=== PATIENT | male | born 2000 | race Caucasian/White ===

== ENCOUNTER 2023-03-20 18:46 | Emergency (ER) | payer OTHER, SELFPAY ==
[2023-03-20 19:04] VITALS: BP 137/74; PULSE 75; RESP 18; TEMP 36.5; O2SAT 96
--- NOTE | 2023-03-20 19:21 | ED.SOB ---
HPI - SOB/Dyspnea General Chief Complaint: Upper Respiratory Infection Stated Complaint: shortness of breath Time Seen by Provider: 03/20/23 19:12 Source: patient and RN notes reviewed Mode of arrival: ambulatory Limitations: no limitations History of Present Illness HPI Narrative: Patient presents today complaining of mild shortness of breath times 3-4 weeks with occasional cough. States cough has not been present for at least 1 week. Denies fever or any additional symptoms. He has tried Mucinex with mild relief. No history of asthma. He is a nonsmoker. Related Data Home Medications Medication Instructions Recorded Confirmed cetirizine 5 mg tablet 5 mg PO DAILY 03/20/23 03/20/23 omeprazole 20 mg capsule,delayed 20 mg DAILY 03/20/23 03/20/23 release Allergies Allergy/AdvReac Type Severity Reaction Status Date / Time No Known Allergies Allergy Verified 03/20/23 19:12 Review of Systems Review of Systems: CONSTITUTIONAL: Denies body aches, fever, chills, or sweats. EYES: Denies visual changes, redness, or discharge. ENT: Denies rhinorrhea, congestion, sore throat, or otalgia. CARDIOVASCULAR: Denies chest pain, palpitations, or edema. RESPIRATORY: + occasional cough, shortness of breath GASTROINTESTINAL: Denies abdominal pain, nausea, vomiting, or diarrhea. GENITOURINARY: Denies dysuria or hematuria. SKIN: Denies rash, itching, or wounds. MUSCULOSKELETAL: Denies back pain, joint pain, or myalgia. NEUROLOGIC: Denies headache, numbness, tingling, or weakness. PSYCH: Denies depression or anxiety. COUNTS INCLUDE 234 BEDS AT THE [facility] Past Medical History Medical History (Updated 03/20/23 @ 19:25 by Sudha Branch, [facility], ) GERD (gastroesophageal reflux disease) Comments At time of signature, I have reviewed and agree with nursing past medical, surgical, social and family history unless otherwise noted. Please see nursing chart for further information. There is no relevant family history pertinent to the presenting complaint Exam Narrative: GENERAL: Well-appearing, well-nourished, and in no acute distress. HEAD: Normocephalic, atraumatic. EYES: EOMI. No redness or drainage. Conjunctivae normal. ENT: Mucous membranes pink and moist. Nares clear. No rhinorrhea. TMs normal bilaterally. Throat normal. Uvula midline. NECK: Normal AROM. Supple. No lymphadenopathy. CHEST: No respiratory distress. Expiratory wheezing throughout. HEART: Regular rate and rhythm. No murmur appreciated. EXTREMITIES: Normal range of motion. No edema. SKIN: Warm, dry, no rash. Capillary refill normal. Normal skin turgor. NEURO: No focal deficits. Alert and oriented x3. Gait steady. PSYCH: Normal affect. No signs of depression or anxiety. Course Course Level of Care: Express Care Visit Vital Signs Vital signs: Vital Signs Temperature 97.7 F 03/20/23 19:04 Pulse Rate 75 03/20/23 19:04 Respiratory Rate 18 03/20/23 19:04 Blood Pressure 137/74 03/20/23 19:04 Pulse Oximetry 96 03/20/23 19:04 Oxygen Delivery Room Air 03/20/23 19:04 Temperature 97.7 F 03/20/23 19:04 Pulse Rate 75 03/20/23 19:04 Respiratory Rate 18 03/20/23 19:04 Blood Pressure 137/74 03/20/23 19:04 Pulse Oximetry 96 03/20/23 19:04 Oxygen Delivery Room Air 03/20/23 19:04 Reviewed MDM - SOB/Dyspnea MDM Narrative Medical decision making narrative: Patient will be treated with prednisone and an albuterol inhaler for his wheezing. No testing indicated at this time. Anticipatory guidance given. Differential Diagnosis Differential diagnosis: Likely other (Bronchitis, pneumonia) Critical Care Time Critical Care Time Critical Care Time: No Discharge Plan Discharge Clinical Impression: Expiratory wheezing Patient Disposition: Home, Self-Care Condition: Stable Instructions: Wheezing (ED) Additional Instructions: Please take the prednisone and use albuterol inhaler as directed. Continue Mucinex if needed. If
== END 2023-03-20 19:33 | disposition home or self-care (01) ==
PROVIDERS: Emergency Provider Nurse Practitioner
DX: R06.2 Wheezing (principal)
CPT/HCPCS: 99203; G0463

== ENCOUNTER 2023-08-11 17:01 | Emergency (ER) | payer OTHER, SELFPAY ==
[2023-08-11 17:25] VITALS: BP 137/91; PULSE 94; RESP 18; TEMP 36.7; O2SAT 97
[2023-08-11 17:28] VITALS: BP 137/91; PULSE 94; RESP 18; TEMP 36.7; O2SAT 97
--- NOTE | 2023-08-11 17:30 | ED.EAR ---
HPI - Ear Problem General Chief complaint: Ear Stated complaint: rt earache Source: patient Mode of arrival: ambulatory Limitations: no limitations History of Present Illness HPI Narrative: 22-year-old male presenting for complaint right knee pain over the past few days. Endorses decreased hearing and yellow drainage. Denies tinnitus, dizziness, nausea, vomiting, fevers or chills. MD Complaint: ear pain Related Data Home Medications Medication Instructions Recorded Confirmed cetirizine 5 mg tablet 5 mg PO DAILY 03/20/23 03/20/23 omeprazole 20 mg capsule,delayed 20 mg DAILY 03/20/23 03/20/23 release Allergies Allergy/AdvReac Type Severity Reaction Status Date / Time No Known Allergies Allergy Verified 08/11/23 17:27 Review of Systems Review of Systems: CONSTITUTIONAL: Denies malaise, chills, or fever. EYES: Denies visual changes, redness, or discharge. ENT: Denies rhinorrhea, congestion, sinus pain, and sore throat. Reports ear pain CARDIOVASCULAR: Denies chest pain, palpitations, or edema. RESPIRATORY: Denies cough or dyspnea. GASTROINTESTINAL: Denies abdominal pain, nausea, vomiting, diarrhea SKIN: Denies rash or itching. MUSCULOSKELETAL: Denies myalgia. NEUROLOGIC: Denies headache. All systems reviewed & are unremarkable except as noted in HPI and below PMFSH Past Medical History Medical History GERD (gastroesophageal reflux disease) Comments At time of signature, agree with nursing past medical, surgical, social and family history. There is no relevant family history pertinent to the presenting complaint Exam Narrative: GENERAL: Well-appearing, EYES: PERRLA, conjunctivae clear ENT: Nares clear. Mucous membranes moist. Left TM pearly singleton with dull light reflex, right TM unable to visualize due to green/purulent drainage in canal, canal erythematous; no tragal tenderness. Oropharynx not erythematous without lesions. NECK: Supple. No lymphadenopathy CHEST: Clear to auscultation, breath sounds equal. HEART: Regular rate and rhythm. No murmur heard. SKIN: Warm, dry, no rash. NEURO: Alert and oriented x3. PSYCH: Normal mood and affect Course Course Emergency Course: Patient is aware of diagnosis, understands and agrees to treatment plan. Anticipatory guidance given. Patient agrees to follow-up as directed and is aware of reasons to seek care at the emergency department. Portions of this record may have been created with voice recognition software Level of Care: Express Care Visit Vital Signs Vital signs: Vital Signs Temperature 98.0 F 08/11/23 17:25 Pulse Rate 94 08/11/23 17:25 Respiratory Rate 18 08/11/23 17:25 Blood Pressure 137/91 H 08/11/23 17:25 Pulse Oximetry 97 08/11/23 17:25 Oxygen Delivery Room Air 08/11/23 17:25 Temperature 98.0 F 08/11/23 17:28 Pulse Rate 94 08/11/23 17:28 Respiratory Rate 18 08/11/23 17:28 Blood Pressure 137/91 H 08/11/23 17:28 Pulse Oximetry 97 08/11/23 17:28 Oxygen Delivery Room Air 08/11/23 17:28 Reviewed Medical Decision Making MDM Narrative Medical decision making narrative: Advised supportive measures and signs/symptoms to go to the ER. Patient is appropriate for outpatient treatment and follow-up. Differential Diagnosis Differential Diagnosis: Coronavirus, strep pharyngitis, allergic rhinitis, upper respiratory tract infection, sinusitis, rhinosinusitis, nasopharyngitis, viral pharyngitis, otitis media, otitis externa, eustachian tube dysfunction, foreign body, cerumen impaction. Vital Signs Vital Signs: Vital Signs Temperature 98.0 F 08/11/23 17:25 Pulse Rate 94 08/11/23 17:25 Respiratory Rate 18 08/11/23 17:25 Blood Pressure 137/91 H 08/11/23 17:25 Pulse Oximetry 97 08/11/23 17:25 Oxygen Delivery Room Air 08/11/23 17:25 Temperature 98.0 F 08/11/23 17:28 Pulse Rate 94 08/11/23 17:28 Respiratory Rate 18
== END 2023-08-11 17:45 | disposition home or self-care (01) ==
PROVIDERS: Emergency Provider Nurse Practitioner Family
DX: H60.91 Unspecified otitis externa, right ear (principal); K21.9 Gastro-esophageal reflux disease without esophagitis
CPT/HCPCS: 99213; G0463